=== PATIENT | male | born 1985 | race Caucasian/White ===

== ENCOUNTER 2019-11-21 16:36 | Emergency (ER) | payer OTHER, BC ==
[~2019-11-21] VITALS: Ht 177.8 cm; Wt 95.2 kg
[~2019-11-21 16:36] MED LIST: ACETAMINOPHEN-1 EAC1 PO; ACETAMINOPHEN325 M1 PO; CRUTCH1 EACH; NORCO 5-325 TA1 EACH PO; PERCOCET 5-3251 EACH PO
[2019-11-21] MEDS ORDERED: NORCO 7.5-3251 EACH PO (19:07)
[2019-11-24] MEDS ORDERED: ADVIL200 MG PO (13:58)
[2019-11-25] MEDS ORDERED: HYDROCODON-ACE1 EA11 PO (10:16)
== END 2019-11-21 19:18 | disposition home or self-care (01) ==
LOC: ED 16:36
PROC: 0XQLXZZ Repair Right Thumb, External Approach (ICD-10-PCS; principal; 2019-11-21)
DX: S56.322A Laceration of extensor or abductor muscles, fascia and tendons of left thumb at forearm level, initial encounter (principal); F17.200 Nicotine dependence, unspecified, uncomplicated; Z88.0 Allergy status to penicillin; W27.0XXA Contact with workbench tool, initial encounter
CPT/HCPCS: 12002; 99282-25; A9270

== ENCOUNTER 2019-12-01 11:01 | Emergency (ER) | payer OTHER, BC ==
[~2019-12-01] VITALS: Ht 180.3 cm; Wt 90.7 kg
[~2019-12-01 11:01] MED LIST changes: +ADVIL200 MG PO; +HYDROCODON-ACE1 EA11 PO; +NORCO 7.5-3251 EACH PO
--- OUTSIDE RECORDS SUMMARY | 2019-12-01 11:04 | XMS ---
PreManage Notification: GALDINO DAN Security Taxation Accountant Events No recent Security Events currently on file CRITERIA MET - [facility] - [facility] - 2 Visits in 30 Days CARE PROVIDERS There are no care providers on record at this time. [facility] has no Care Guidelines for this patient. [place] VISIT COUNT (12 MO.) 2 [facility] TOTAL 2 NOTE: Visits indicate total known visits. ED/C VISIT TRACKING (12 MO.) 12/01/2019 11:02 [facility] [place] TYPE: Emergency COMPLAINT: - POST OP PROBLEM 11/21/2019 16:[address] [facility] TYPE: Emergency COMPLAINT: - L HAND LACERATION DIAGNOSES: - Allergy status to penicillin - Nicotine dependence, unspecified, uncomplicated - Laceration of extensor or abductor muscles, fascia and tendon - Laceration without foreign body of left thumb without damage - Contact with workbench tool, initial encounter INPATIENT VISIT TRACKING (12 MO.) No inpatient visits to display in this time frame [email or web address]
== END 2019-12-01 13:48 | disposition home or self-care (01) ==
LOC: ED 11:01
DX: T81.40XA Infection following a procedure, unspecified, initial encounter (principal); L03.012 Cellulitis of left finger; F17.200 Nicotine dependence, unspecified, uncomplicated; Z88.0 Allergy status to penicillin; Z98.890 Other specified postprocedural states
CPT/HCPCS: 73140; 80048; 85025; 96365; 99283-25